=== PATIENT | female | born 1985 | race Caucasian/White ===

== ENCOUNTER 2022-03-15 12:52 | Emergency (ER) | payer BC, OTHER ==
[2022-03-15 14:45] VITALS: BP 138/82; PULSE 71
[2022-03-15] MEDS ORDERED: Sodium Chloride 0.9% 10 ML Syringe FLUSH PRN ×2 (14:48→15:19)
[2022-03-15] MEDS ORDERED: Ondansetron 4 MG/2 ML SDV IVPUSH ONE (14:48)
[2022-03-15] MEDS ORDERED: HYDROmorphone 1 MG/ML Syringe IVPUSH STA (14:48)
[2022-03-15] MEDS ORDERED: Sodium Chloride 0.9% 1,000 ML IV SCH (15:00)
[2022-03-15] MEDS ORDERED: Iopamidol 612 MG/ML 50 ML SDV IVPUSH ONE (15:19)
[2022-03-15] MEDS ORDERED: Iopamidol 612 MG/ML 100 ML Bottle IVPUSH ONE (15:19)
[2022-03-15 15:49] LABS: ESTIMATED GFR 116 mL/min (>60)
== END 2022-03-15 16:30 | disposition home or self-care (01) ==
LOC: JD.ED 12:52
DX: R10.31 Right lower quadrant pain (principal); Z88.5 Allergy status to narcotic agent
CPT/HCPCS: 36415; 74177; 80053; 83690; 85025; 86140; 96361; 96374; 96375; 99284; J1170; J2405; J3490; J7030; Q9967